=== PATIENT | male | born 1990 | race Caucasian/White ===

== ENCOUNTER → 2020-01-30 | Outpatient (CLI) | payer SELFPAY ==
--- NOTE | 2020-01-30 15:11 | PFTRPT ---
Height: 72.00 Inches Weight: 300.00 Lbs BSA: 2.53 Diagnosis: J45.901 DATE: 01/30/2020 ORDERING PHYSICIAN: Dr. Alexi Che Pre and post bronchodilator administration test is identified. Forced vital capacity is normal. FEV1 is in proportion, obstructive index is therefore normal. Expiratory limit of the flow-volume loop is normal. No significant bronchodilator response is identified. IMPRESSION: Normal study. MTDD
== END ==
LOC: M CARPUL 14:41
PROVIDERS: ATTEND Internal Medicine
DX: J45.901 Unspecified asthma with (acute) exacerbation (principal)

== ENCOUNTER → 2023-04-06 | Outpatient (CLI) | payer BC | LOC: M RAD 14:04 | PROVIDERS: ATTEND Nurse Practitioner Family | DX: M79.661 Pain in right lower leg (principal) ==

== ENCOUNTER → 2023-07-01 | Outpatient (CLI) | payer BC | LOC: M RAD 10:53 | PROVIDERS: ATTEND Internal Medicine | DX: E03.9 Hypothyroidism, unspecified (principal); R63.4 Abnormal weight loss ==

== ENCOUNTER → 2023-08-07 | Outpatient (CLI) | payer BC | LOC: M RAD 07:03 | PROVIDERS: ATTEND Internal Medicine | DX: K30 Functional dyspepsia (principal) ==